=== PATIENT | male | born 1990 | race Caucasian/White ===

== ENCOUNTER → 2018-10-02 | Outpatient (REF) | payer OTHER | LOC: M SMT 13:12 | PROVIDERS: ATTEND Urology | DX: Z30.2 Encounter for sterilization (principal) ==

== ENCOUNTER → 2019-01-15 | Outpatient (REF) | payer OTHER ==
[2019-01-15 13:50] LABS: SEMEN APPEARANCE OPAQUE (OPAQUE); SEMEN VISCOSITY LIQUID (LIQUID); SEMEN VOLUME 2.9 ml (2.0-5.0); WBC CONCENTRATION <=1 M/ml (<=1 M/ml)
== END ==
LOC: M SMT 13:06
PROVIDERS: ATTEND Urology
DX: Z98.52 Vasectomy status (principal)

== ENCOUNTER 2020-06-12 14:49 | Emergency (ER) | payer OTHER ==
[~2020-06-12] VITALS: Ht 190.5 cm; Wt 79.5 kg
[2020-06-12] MEDS ORDERED: LIDOCAINE 1% MDV 20ML VIAL INFIL ONE (15:30)
[2020-06-12] MEDS ORDERED: KETOROLAC TROMETHAMINE 10 MG TAB PO ONE (15:30)
--- NOTE | 2020-06-12 15:50 | REP ---
INDICATION: second toe slice with axe to bone. COMPARISON: Four views FINDINGS: There is a fracture involving the distal phalanx of the 2nd digit with an intra-articular component. The medial soft tissues of the tip of the 2nd toe is lacerated. There are no additional fractures. There is a type 2 os navicular. IMPRESSION: Fracture laceration as described above. <Electronically signed by Rainer Lorenzana > 06/12/20 [id number]
[2020-06-12] MEDS ORDERED: ceFAZolin SOD 2 GM in IV 1 EA IV ONE (16:45)
[2020-06-12] MEDS ORDERED: BACT800T5 PO (17:53)
[2020-06-12] MEDS ORDERED: BOOSTRIX/ADACEL VACCINE (DIPHTH/PERTUSS/ACELL/TETANUS) 0.5ML SYR IM ONE (18:15)
[2020-06-12 18:23] VITALS: BP 131/78
== END 2020-06-12 18:30 | disposition home or self-care (01) ==
LOC: M ED 14:49
DX: S92.321A Displaced fracture of second metatarsal bone, right foot, initial encounter for closed fracture (principal); S91.214A Laceration without foreign body of right lesser toe(s) with damage to nail, initial encounter; W22.8XXA Striking against or struck by other objects, initial encounter; Y92.018 Other place in single-family (private) house as the place of occurrence of the external cause
CPT/HCPCS: 12042; 73630; 90471; 90715; 96365; 99284; J0690